=== PATIENT | female | born 1955 | race Caucasian/White ===

== ENCOUNTER 2018-02-12 09:41 | Outpatient (CLI) | payer OTHER ==
--- NOTE | 2018-02-12 11:08 | RAD ---
LUMBAR SPINE TWO VIEWS: History: Low back pain. FINDINGS/IMPRESSION: There are degenerative changes in the lumbar spine without evidence of fracture, subluxation, or bony destruction. There are post op changes at the SI joint. POS: [facility]
== END 2018-02-12 09:42 | disposition home or self-care (01) ==
LOC: TBSIIMAG 09:41
PROVIDERS: ATTEND Neurological Surgery
DX: M54.5 Low back pain (principal); M47.896 Other spondylosis, lumbar region; Z98.890 Other specified postprocedural states
CPT/HCPCS: 72100

== ENCOUNTER 2018-03-12 07:39 | Outpatient (CLI) | payer OTHER ==
--- NOTE | 2018-03-12 10:01 | MRI ---
MRI LUMBAR SPINE WITHOUT CONTRAST: HISTORY: M54.16, lumbar radiculopathy. COMPARISON: MRI lumbar spine from 2014. FINDINGS: The T2 hyperintense foci of both kidneys are slightly increased in size most suggestive of cysts. Th e aortic contour is non-aneurysmal. Right SI joint fusion hardware. Congenitally shortened pedicles. The levels are as follows: T12-L1: Mild disk desiccation. Low-grade disk bulge. No neural foraminal or spinal canal narrowing . L1-2: Mild circumferential disk bulge. Mild facet arthrosis. The spinal canal measures over a cent imeter. L2-3: Mild circumferential disk bulge. The spinal canal measures approximately 9 mm. No significan t neural foraminal narrowing. L3-4: Mild disk desiccation and circumferential disk bulge. Mild facet arthropathy. There is moder ate bilateral neural foraminal narrowing. The spinal canal measures approximately 8 mm. There appea rs to be abutment of the exiting right L3 nerve root. L4-5: Mild disk desiccation. Moderate facet hypertrophic changes. There is moderate left neural fo raminal narrowing. The spinal canal measures approximately 8 mm. L5-S1: Moderate to severe hypertrophic facet changes. Low-grade circumferential disk bulge. Mild b ilateral neural foraminal narrowing. IMPRESSION: Mild to moderate spondylosis as described above worst at L4-5. POS: [facility]
== END 2018-03-12 07:40 | disposition home or self-care (01) ==
LOC: TBSIIMAG 07:39
PROVIDERS: ATTEND Neurological Surgery
DX: M47.26 Other spondylosis with radiculopathy, lumbar region (principal)
CPT/HCPCS: 72148

== ENCOUNTER 2018-04-03 09:54 | Outpatient (CLI) | payer OTHER ==
[2018-04-03 11:59] LABS: Hemoglobin 14.7 g/dL (12.0-16.0); Mean Corpuscular HGB CONC 34.5 g/dL (32.0-36.0); Mean Corpuscular Volume 95.6 fl (81.0-99.0); Mean Platelet Volume 8.3 fL (7.4-10.4); Platelet Count 278 thou/uL (130-400); RBC Distribution Width 11.7 % (11.5-14.5); Red Blood Cell (RBC) Count 4.44 mill/uL (4.20-5.40); White Blood Cell (WBC) Count 8.4 thou/uL (4.8-10.8)
[2018-04-03 12:19] LABS: Anion Gap 12 mmol/L (10-20); BUN (Urea Nitrogen) 10 mg/dL (9.8-20.1); Calc. Creatinine Clearance 0 mL/min (70-130); Calcium 10.5 mg/dL (7.8-10.44); Carbon Dioxide 26 mmol/L (23-31); Chloride 103 mmol/L (98-107); Estimated GFR-MDRD 82; Glucose 185 mg/dL (80-115); Potassium 3.6 mmol/L (3.5-5.1); Sodium 137 mmol/L (136-145)
== END 2018-04-03 09:55 | disposition home or self-care (01) ==
LOC: LABBT 09:54
PROVIDERS: ATTEND Neurological Surgery
DX: Z01.818 Encounter for other preprocedural examination (principal); M54.5 Low back pain
CPT/HCPCS: 80048; 85027; 93005; 93010

== ENCOUNTER 2018-04-08 10:44 | Day surgery (SDC) | payer OTHER ==
[2018-04-03 10:05] VITALS: BMI 36.3
--- NOTE | 2018-04-07 10:42 | HP ---
HISTORY OF PRESENT ILLNESS: Ms. Paiz is a 62-year-old woman, known to us for distant evaluation of l umbar back pains and right lower extremity L3 pains with an MRI performed at that time revealing no s ignificant nerve compression; however, early Modic endplate changes at L3-4. She returns today for n ow bilateral L3 pain, but more or less constant and exacerbated by activity. She does now have a new MRI from [facility] that reveals further progression of Modic endplate changes at L3-4. She also struggle s with a significant amount of back pain. She did have a surgery in [address] Ceja, which lo oks like there was a right SI joint fusion, based off of x-rays she had performed in the clinic today . She has had several epidural steroid injections with Dr. Resendez, but never seems like they ma de a significant degree of difference, though her PT did help, but her pain has continued to return a fter completion of each therapy session. She has to move forward with surgery at this time. PAST MEDICAL HISTORY: Includes hypertension, type 2 diabetes, osteoarthritis, kidney stones, hyperli pidemia. CURRENT MEDICATIONS: Aspirin, PreserVision, metformin, losartan, atorvastatin, and Aleve. ALLERGIES: LYRICA. PHYSICAL EXAMINATION: On exam, patient is alert and oriented x3. Gait is significantly antalgic. P atrick's test bilaterally is negative. Lower extremity motor exam is normal bilaterally. ASSESSMENT: Lower back pain with lumbar radiculopathy. PLAN: Dr. Redmond met with the patient, reviewed imaging, and advocated for an L3-4 spinal fusion. He explained to the patient the risks, benefits, and alternatives to the procedure. The patient expres sed understanding and would like to move forward with surgery as discussed. I do believe the patient is mentally competent and capable of making medical decisions for herself and we will move forward w [facility] surgery as planned. Wood Pulido PA-C dictating for Dank Redmond M.D.
[2018-04-08] MEDS ORDERED: CEFAZOLIN/Water 2 GM/20 ML SYRINGE ONE ×2 (12:02→16:37)
[2018-04-08] MEDS ORDERED: Thrombin 5000 UNITS/5 ML VIAL ONE (12:24)
[2018-04-08] MEDS ORDERED: Bupivacaine HCl 0.5%/Epinephrine 1:200,000/PF 30 ml Vial ONE (12:24)
[2018-04-08] MEDS ORDERED: Fentanyl 250 MCG/5 ML VIAL ONE (12:48)
[2018-04-08] MEDS ORDERED: Midazolam HCl 2 mg/2 ml Vial ONE (12:48)
[2018-04-08] MEDS ORDERED: Lidocaine 1% PF 5 ML VIAL ONE (13:37)
[2018-04-08] MEDS ORDERED: Dexamethasone 20 MG/5 ML VIAL ONE (13:37)
[2018-04-08] MEDS ORDERED: PHENYLEPHRINE-NS 100 MCG/ML 10 ML SYRINGE ONE (13:37)
[2018-04-08] MEDS ORDERED: ePHEDrine/0.9% NaCl/PF SYRINGE 50 mg/10 ml ONE (13:37)
[2018-04-08] MEDS ORDERED: Ondansetron HCl/PF 4 MG/2 ML Vial ONE (13:37)
[2018-04-08] MEDS ORDERED: Glycopyrrolate 0.2 MG/ML 5 ML SYRINGE ONE (13:37)
[2018-04-08] MEDS ORDERED: PROPOFOL 200 MG/20 ML VIAL ONE (13:37)
[2018-04-08] MEDS ORDERED: Esmolol 100 MG/10 ML VIAL ONE (13:37)
[2018-04-08] MEDS ORDERED: Ketorolac Tromethamine 30 MG/ML VIAL ONE (15:25)
--- NOTE | 2018-04-09 12:41 | OP ---
DATE OF PROCEDURE: 04/08/2018 SURGEON: Dank Redmond M.D. CUSTOMS APPRAISER: None. INDICATION: Pain. DIAGNOSIS: Lumbar radiculopathy. PROCEDURE PERFORMED: L3-L4 lumbar decompression, bilateral medial facetectomies, foraminotomies. ANESTHESIA: General. TECHNIQUE: The patient was brought into the operating room and placed under general anesthesia. She was flipped from a supine to a prone position on the operating room table. A linear incision was pl anned over the L3-L4. After prepping and draping and after an appropriate operative pause, the incis ion was created. Soft tissues were swept away from midline. A self-retaining retractor was placed i n the wound for optimal exposure. After confirming the appropriate levels with C-arm fluoroscopy, Ad son rongeurs as well as a high-speed cutting drill bit as well as 2, 3 and 4 mm Kerrisons were used t o perform a laminectomy at L3-L4. After completing the decompression, the wound was irrigated. Hemo stasis was maintained throughout. The wound was then closed in anatomic layers and a pressure dressi ng was applied. There were no known procedural complications.
== END 2018-04-08 17:06 | disposition home or self-care (01) ==
LOC: SDC 10:44
PROVIDERS: ATTEND Neurological Surgery
PROC: 01NB0ZZ Release Lumbar Nerve, Open Approach (ICD-10-PCS; principal; 2018-04-08)
DX: M54.16 Radiculopathy, lumbar region (principal); I10 Essential (primary) hypertension; E11.9 Type 2 diabetes mellitus without complications; E78.5 Hyperlipidemia, unspecified; M19.90 Unspecified osteoarthritis, unspecified site; Z88.8 Allergy status to other drugs, medicaments and biological substances; Z88.5 Allergy status to narcotic agent; Z79.84 Long term (current) use of oral hypoglycemic drugs; Z79.899 Other long term (current) drug therapy; Z79.82 Long term (current) use of aspirin
CPT/HCPCS: 76001; 96374; J0670; J1100; J1885; J2001; J2250; J2405; J2704; J3010

== ENCOUNTER 2018-05-20 10:21 | Outpatient (CLI) | payer OTHER ==
--- NOTE | 2018-05-21 16:39 | MMO ---
BILATERAL SCREENING MAMMOGRAMS: 05/20/18 HISTORY: 63-year-old female for screening mammography. COMPARISON: 05/17/17, 05/15/16, 05/14/15. FINDINGS: Bilateral MLO and CC views of the breasts shows predominantly fatty replaced breast parenchyma. Benig n appearing calcifications are seen in both breasts. There is no evidence of suspicious mass, suspici ous cluster of microcalcifications or area of architectural distortion. Interpretation of this mammogram was performed with the assistance of computer aided detection. IMPRESSION: BI-RADS 2: Benign Finding(s) Routine annual screening mammography (for women over age 40). POS: [facility]
== END 2018-05-20 10:22 | disposition home or self-care (01) ==
LOC: SCSMAMMO 10:21
PROVIDERS: ATTEND Family Medicine
DX: Z12.31 Encounter for screening mammogram for malignant neoplasm of breast (principal)
CPT/HCPCS: 77067

== ENCOUNTER 2019-01-06 08:45 | Outpatient (CLI) | payer OTHER ==
--- NOTE | 2019-01-06 11:17 | BD ---
DEXA BONE SCAN: HISTORY: Age-related osteoporosis. COMPARISON: Previous exam from [facility] on 03/08/2015. TECHNIQUE: A DEXA bone scan is performed using a hologic bone mineral density unit. FINDINGS: DEXA evaluation of the lumbar spine was unable to be performed due to previous lumbar surgery. Bilat [facility] hip bone mineral density evaluation was performed. RIGHT HIP BMD (g/cm2) T-SCORE Z-SCORE FEMORAL NECK 0.69 -1.4 0.0 COMPOSITE 0.86 -0.7 0.5 The patient has FRAX score on the right, for a major osteoporotic fracture, is 7.7%, and hip fracture risk is 0.7%. Findings similar to previous bone scan, when the patient had a T-score of -0.7 and a Z-score of 0.3. LEFT HIP BMD (g/cm2) T-SCORE Z-SCORE FEMORAL NECK 0.65 -1.8 -0.4 COMPOSITE 0.87 -0.6 0.5 The patient has the following FRAX score: Major osteoporotic fracture risk is 8.6% and hip fracture risk is 0.9%. The patient's left hip bone mineral density has slightly improved since the previous e xam. Previously, the T-score was -1.3 and the Z-score was -0.4. IMPRESSION: Mild osteopenia with no significant evidence of interval change since the previous comparison examina tion. POS: [facility]
== END 2019-01-06 08:46 | disposition home or self-care (01) ==
LOC: BICMAMMO 08:45
PROVIDERS: ATTEND Family Medicine
DX: E21.0 Primary hyperparathyroidism (principal); M85.851 Other specified disorders of bone density and structure, right thigh; M85.852 Other specified disorders of bone density and structure, left thigh
CPT/HCPCS: 77080

== ENCOUNTER 2019-06-10 12:55 | Outpatient (CLI) | payer OTHER ==
--- NOTE | 2019-06-10 13:34 | MMO ---
Bilateral MAMMO Bilat Screen [facility]. CLINICAL HISTORY: Patient is 64 years old and is seen for screening. The patient has the following family history of breast cancer: sister, at age 50. The patient has no personal history of cancer. VIEWS: The views performed were: bilateral craniocaudal with tomosynthesis and bilateral mediolateral oblique with tomosynthesis. FILMS COMPARED: The present examination has been compared to prior imaging studies performed at [facility] on 05/12/2014, 05/14/2015, 05/15/2016 and 05/17/2017. MAMMOGRAM FINDINGS: The breasts are almost entirely fat. There are stable benign appearing calcifications seen in both breasts. There are no suspicious masses, suspicious calcifications, or new areas of architectural distortion. IMPRESSION: THERE IS NO MAMMOGRAPHIC EVIDENCE OF MALIGNANCY. A ROUTINE FOLLOW-UP MAMMOGRAM IN 1 YEAR IS RECOMMENDED. THE RESULTS OF THIS EXAM WERE SENT TO THE PATIENT. ACR BI-RADS Category 2 - Benign finding MAMMOGRAPHY NOTE: 1. A negative mammogram report should not delay a biopsy if a dominant of clinically suspicious mass is present. 2. Approximately 10% to 15% of breast cancers are not detected by mammography. 3. Adenosis and dense breasts may obscure an underlying neoplasm. Reported by: AB HARRINGTON MD Electonically Signed: [id number]
== END 2019-06-10 12:56 | disposition home or self-care (01) ==
LOC: BICMAMMO 12:55
PROVIDERS: ATTEND Physician Assistant
DX: Z12.31 Encounter for screening mammogram for malignant neoplasm of breast (principal); Z80.3 Family history of malignant neoplasm of breast
CPT/HCPCS: 77063; 77067

== ENCOUNTER 2019-12-09 07:22 | Outpatient (CLI) | payer OTHER ==
--- NOTE | 2019-12-09 14:03 | NM ---
RADIONUCLIDE PARATHYROID SCAN WITH PLANAR AND SPECT-CT IMAGES: HISTORY: Hyperparathyroidism, primary RADIOPHARMACEUTICAL:26.2mCi technetium 99m-sestamibi injected intravenously FINDINGS: There is physiologic uptake in the salivary glands and thyroid gland. There is focally increased uptake in the region of the inferior right parathyroid gland. No abnormal areas of tracer localization are seen in the chest. 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
== END 2019-12-09 07:23 | disposition home or self-care (01) ==
LOC: NM 07:22
PROVIDERS: ATTEND Physician Assistant
DX: E21.0 Primary hyperparathyroidism (principal)
CPT/HCPCS: 78072; A9500

== ENCOUNTER 2021-06-20 09:24 | Outpatient (CLI) | payer MEDICARE | END 2021-06-20 09:25 | disposition home or self-care (01) | LOC: BICMAMMO 09:24 | PROVIDERS: ATTEND Physician Assistant | DX: Z12.31 Encounter for screening mammogram for malignant neoplasm of breast (principal); Z80.3 Family history of malignant neoplasm of breast | CPT/HCPCS: 77063; 77067 ==

== ENCOUNTER 2021-11-18 13:40 | Outpatient (CLI) | payer MEDICARE | END 2021-11-18 13:41 | disposition home or self-care (01) | LOC: BICRAD 13:40 | PROVIDERS: ATTEND Physician Assistant | DX: M25.512 Pain in left shoulder (principal) ==

== ENCOUNTER 2022-06-22 14:33 | Outpatient (CLI) | payer MEDICARE, OTHER | END 2022-06-22 14:34 | disposition home or self-care (01) | LOC: BICMAMMO 14:33 | PROVIDERS: ATTEND Nurse Practitioner Family | DX: Z12.31 Encounter for screening mammogram for malignant neoplasm of breast (principal); Z80.3 Family history of malignant neoplasm of breast | CPT/HCPCS: 77063; 77067 ==

== ENCOUNTER 2023-07-26 09:37 | Outpatient (CLI) | payer MEDICARE | END 2023-07-26 09:38 | disposition home or self-care (01) | LOC: BICMAMMO 09:37 | PROVIDERS: ATTEND Nurse Practitioner Family | DX: Z12.31 Encounter for screening mammogram for malignant neoplasm of breast (principal); Z80.3 Family history of malignant neoplasm of breast | CPT/HCPCS: 77063; 77067 ==

== ENCOUNTER 2023-08-21 10:06 | Outpatient (CLI) | payer MEDICARE | END 2023-08-21 10:07 | disposition home or self-care (01) | LOC: BICRAD 10:06 | PROVIDERS: ATTEND Nurse Practitioner Family | DX: M19.011 Primary osteoarthritis, right shoulder (principal) ==

== ENCOUNTER 2023-08-22 08:47 | Outpatient (CLI) | payer MEDICARE | END 2023-08-22 08:48 | disposition home or self-care (01) | LOC: BICMAMMO 08:47 | PROVIDERS: ATTEND Nurse Practitioner Family | DX: Z13.820 Encounter for screening for osteoporosis (principal); Z78.0 Asymptomatic menopausal state; M85.89 Other specified disorders of bone density and structure, multiple sites | CPT/HCPCS: 77080 ==

== ENCOUNTER 2023-09-04 09:59 | Outpatient (CLI) | payer MEDICARE | END 2023-09-04 10:00 | disposition home or self-care (01) | LOC: BICMRI 09:59 | PROVIDERS: ATTEND Nurse Practitioner Family | DX: M25.511 Pain in right shoulder (principal); M75.101 Unspecified rotator cuff tear or rupture of right shoulder, not specified as traumatic; M25.411 Effusion, right shoulder; M19.011 Primary osteoarthritis, right shoulder ==

== ENCOUNTER 2024-07-31 09:16 | Outpatient (CLI) | payer MEDICARE | END 2024-07-31 09:17 | disposition home or self-care (01) | LOC: BICMAMMO 09:16 | PROVIDERS: ATTEND Nurse Practitioner Family | DX: Z12.31 Encounter for screening mammogram for malignant neoplasm of breast (principal); Z80.3 Family history of malignant neoplasm of breast | CPT/HCPCS: 77067 ==

== ENCOUNTER 2024-08-28 10:07 | Inpatient (IN) | payer MEDICARE ==
[2024-08-28] MEDS ORDERED: Ondansetron ODT 4 MG TAB ONE (10:26)
[2024-08-28 11:20] LABS: #Basophils 0.09 10x3/uL (0.0-0.2); #Eosinophils Less than 0.03 10x3/uL (0.0-0.7); %Basophils 0.5 % (0.0-1.0); %Lymphocytes 5.7 % (21.0-51.0); %Monocytes 4.1 % (0.0-10.0); Hematocrit 38.2 % (36.0-47.0); Hemoglobin 12.6 g/dL (12.0-16.0); Mean Corpuscular Hemoglobin 30.7 pg (27.0-31.0); Mean Corpuscular Volume 93.2 fL (78.0-98.0); Mean Platelet Volume 9.5 fL (7.4-10.4); Platelet Count 486 10x3/uL (130-400); RBC Distribution Width 14.9 % (11.5-14.5)
[2024-08-28 11:36] LABS: ALT (SGPT) 9 U/L (8-55); AST (SGOT) 9 U/L (5-34); Albumin 3.5 g/dL (3.4-4.8); Alkaline Phosphatase 53 U/L (40-110); Anion Gap 34 mmol/L (10-20); BUN (Urea Nitrogen) 46 mg/dL (9.8-20.1); Bilirubin, Total 0.5 mg/dL (0.2-1.2); Calc. Creatinine Clearance 0 mL/min (70-130); Calcium 10.5 mg/dL (7.8-10.44); Carbon Dioxide 11 mmol/L (23-31); Chloride 93 mmol/L (98-107); Estimated GFR 6; Globulin 3.8 g/dL (2.4-3.5); Glucose 55 mg/dL (80-115); Lipase 147 U/L (8-78); Magnesium 1.5 mg/dL (1.6-2.6); Potassium 3.3 mmol/L (3.5-5.1); Protein, Total 7.3 g/dL (5.8-8.1); Sodium 135 mmol/L (136-145)
[2024-08-28 11:55] LABS: Bacteria/HPF 4+ HPF (None Seen); Bilirubin Negative (Negative); Blood, Urine Trace (Negative); CAUTI Indications for Culture Pelvic or flank pain; Clarity Extra Turbid (Clear); Glucose, Urine (Dipstick) Normal (Negative); Ketone, Urine 10 mg/dL (Negative); Leukocyte 500 Leu/uL (Negative); Nitrite Negative (Negative); Protein, Urine (Dipstick) 50 mg/dL (Neg-Trace); RBC/HPF 0-3 HPF (0-3); Specific Gravity, Urine 1.006 (1.002-1.036); Squamous Epithelial 21-50 HPF (0-3); Urobilinogen Normal mg/dL (Less than 2); WBC/HPF 21-50 HPF (0-3)
[2024-08-28 11:58] LABS: Urine Culture Reflex Yes Yes
[2024-08-28] MEDS ORDERED: Sodium Chloride 0.9% 100 ML ONE (13:22)
[2024-08-28] MEDS ORDERED: Magnesium 2 GM/50 ML BAG (IN WATER) ONE (13:22)
[2024-08-28] MEDS ORDERED: cefTRIAXone (ROCEPHIN) 2 GM VIAL ONE (13:22)
[2024-08-28] MEDS ORDERED: Loperamide HCl 2 MG CAP PO PRN ×2 (14:48)
[2024-08-28] MEDS ORDERED: Ondansetron ODT 4 MG TAB PO PRN (14:48)
[2024-08-28] MEDS ORDERED: Glucagon 1 MG/ML KIT IM PRN (14:51)
[2024-08-28] MEDS ORDERED: Dextrose 5% in Water 1,000 ML IV PRN (14:51)
[2024-08-28 15:00] VITALS: BMI 71.1
[2024-08-28] MEDS: Sodium Chloride 0.9% 1,000 ML IV SCH (15:32)
[2024-08-28] MEDS: Heparin 5,000 UNITS/ML VIAL SC SCH (15:32)
[2024-08-28] MEDS: Sodium Bicarb 50 MEQ/50 ML Abboject 8.4% SYRINGE IVP SCH (16:13)
[2024-08-28 17:16] LABS: Lactic Acid 9.07 mmol/L (0.5-2.2)
[2024-08-28] MEDS: FLU (Fluad Triv) TS24-25 (65UP)/MF59C/PF 45 MCG/0.5 ML Syringe IM ONE (18:04)
[2024-08-28] MEDS: Acetaminophen 325 MG TAB PO PRN (19:20)
[2024-08-28] MEDS: Famotidine/PF 20 mg/2ml Vial SLOW IVP SCH (21:02)
[2024-08-29 01:41] LABS: #Basophils 0.06 10x3/uL (0.0-0.2); #Eosinophils Less than 0.03 10x3/uL (0.0-0.7); %Basophils 0.5 % (0.0-1.0); %Eosinophils 0.2 % (0.0-10.0); %Lymphocytes 15.2 % (21.0-51.0); %Monocytes 9.3 % (0.0-10.0); %Neutrophils 74.3 % (42.0-75.0); Hematocrit 30.4 % (36.0-47.0); Hemoglobin 10.3 g/dL (12.0-16.0); Mean Corpuscular HGB CONC 33.9 g/dL (32.0-36.0); Mean Corpuscular Hemoglobin 31.4 pg (27.0-31.0); Mean Corpuscular Volume 92.7 fL (78.0-98.0); Mean Platelet Volume 9.3 fL (7.4-10.4); Platelet Count 361 10x3/uL (130-400); Red Blood Cell (RBC) Count 3.28 mill/uL (4.20-5.40)
[2024-08-29 01:45] LABS: Anion Gap 24 mmol/L (10-20); BUN (Urea Nitrogen) 43 mg/dL (9.8-20.1); Calc. Creatinine Clearance 21 mL/min (70-130); Calcium 8.7 mg/dL (7.8-10.44); Carbon Dioxide 13 mmol/L (23-31); Chloride 99 mmol/L (98-107); Estimated GFR 6; Glucose 33 mg/dL (80-115); Sodium 133 mmol/L (136-145)
[2024-08-29] MEDS: Dextrose 50% Abboject 50 ML SYRINGE SLOW IVP PRN (01:53)
[2024-08-29 02:09] LABS: Magnesium 1.7 mg/dL (1.6-2.6)
[2024-08-29] MEDS: Magnesium 2 GM/50 ML(in water) 2 GM in Premix 1 BAG IVPB SCH (03:35)
[2024-08-29] MEDS: Sodium Bicarbonate 150 MEQ in Dextrose 5% in Water 1,000 ML IV SCH (03:36)
[2024-08-29] MEDS: Potassium Chloride 20 MEQ in Premix 1 BAG IVPB SCH ×2 (03:36→05:46)
[2024-08-29 03:55] LABS: Sodium 131 mmol/L (136-145)
[2024-08-29 03:56] LABS: BUN (Urea Nitrogen) 43 mg/dL (9.8-20.1); Calc. Creatinine Clearance 23 mL/min (70-130); Carbon Dioxide 10 mmol/L (23-31); Chloride 98 mmol/L (98-107); Estimated GFR 6
[2024-08-29 03:57] LABS: Calcium 8.9 mg/dL (7.6-10.4); Glucose 26 mg/dL (80-115); Lipase 396 U/L (8-78)
[2024-08-29 03:58] LABS: Anion Gap 26 mmol/L (10-20)
[2024-08-29] MEDS: Cefepime 1 GM in Sodium Chloride 0.9% 100 ML IVPB SCH (10:14)
[2024-08-29 10:40] LABS: #Basophils 0.05 10x3/uL (0.0-0.2); %Basophils 0.5 % (0.0-1.0); %Eosinophils 0.3 % (0.0-10.0); %Lymphocytes 9.1 % (21.0-51.0); %Monocytes 8.9 % (0.0-10.0); %Neutrophils 80.7 % (42.0-75.0); Hematocrit 28.2 % (36.0-47.0); Hemoglobin 9.8 g/dL (12.0-16.0); Mean Corpuscular HGB CONC 34.8 g/dL (32.0-36.0); Mean Corpuscular Hemoglobin 30.7 pg (27.0-31.0); Mean Corpuscular Volume 88.4 fL (78.0-98.0); Mean Platelet Volume 9.7 fL (7.4-10.4); Platelet Count 356 10x3/uL (130-400); RBC Distribution Width 14.9 % (11.5-14.5); Red Blood Cell (RBC) Count 3.19 mill/uL (4.20-5.40)
[2024-08-29] MEDS: Insulin Lispro 100 UNIT/ML 10 ML VIAL SC PRN (10:57)
[2024-08-29 11:04] LABS: ALT (SGPT) 7 U/L (8-55); AST (SGOT) 10 U/L (5-34); Albumin 2.7 g/dL (3.4-4.8); Alkaline Phosphatase 38 U/L (40-110); Anion Gap 19 mmol/L (10-20); BUN (Urea Nitrogen) 41 mg/dL (9.8-20.1); Bilirubin, Total 0.4 mg/dL (0.2-1.2); Calc. Creatinine Clearance 11 mL/min (70-130); Calcium 8.7 mg/dL (7.8-10.44); Carbon Dioxide 20 mmol/L (23-31); Chloride 93 mmol/L (98-107); Estimated GFR 6; Globulin 2.7 g/dL (2.4-3.5); Glucose 204 mg/dL (80-115); Potassium 3.2 mmol/L (3.5-5.1); Protein, Total 5.4 g/dL (5.8-8.1); Sodium 129 mmol/L (136-145)
[2024-08-29] MEDS: Ondansetron PF 4 MG/2 ML Vial IVP PRN (12:10)
[2024-08-29] MEDS: Albumin 25% 25 GM (100 mL) BOT IVPB SCH (12:11)
[2024-08-29 12:47] LABS: ANA Symphony (Qualitative) Negative (Negative); ANA Symphony (Quantitative) 0.1 Ratio (< 0.7 Negative)
[2024-08-29] MEDS ORDERED: cefTRIAXone\\ROCEPHIN 1 GM in Sodium Chloride 0.9% 100 ML IVPB SCH (13:00)
[2024-08-29 13:39] LABS: Lactic Acid 3.77 mmol/L (0.5-2.2)
[2024-08-29 14:18] LABS: Anion Gap 20 mmol/L (10-20); BUN (Urea Nitrogen) 42 mg/dL (9.8-20.1); Calc. Creatinine Clearance 10 mL/min (70-130); Calcium 8.9 mg/dL (7.8-10.44); Carbon Dioxide 22 mmol/L (23-31); Chloride 93 mmol/L (98-107); Estimated GFR 6; Glucose 180 mg/dL (80-115); Sodium 132 mmol/L (136-145)
[2024-08-29 15:38] VITALS: BMI 34.3
[2024-08-29] MEDS: Sodium Chloride 0.9% 1,000 ML IV SCH (16:48)
[2024-08-29 18:58] LABS: Phosphorus 3.4 mg/dL (2.3-4.7)
[2024-08-29 21:34] LABS: Anion Gap 20 mmol/L (10-20); BUN (Urea Nitrogen) 40 mg/dL (9.8-20.1); Calc. Creatinine Clearance 12 mL/min (70-130); Calcium 9.2 mg/dL (7.8-10.44); Carbon Dioxide 21 mmol/L (23-31); Chloride 92 mmol/L (98-107); Estimated GFR 7; Glucose 148 mg/dL (80-115); Potassium 2.9 mmol/L (3.5-5.1); Sodium 130 mmol/L (136-145)
[2024-08-29 23:52] LABS: Protein, Urine Random Quant Less than 10 mg/dL (1-14)
[2024-08-30] MEDS: Methocarbamol 500 MG TAB PO SCH (01:03)
[2024-08-30 05:16] LABS: #Basophils 0.03 10x3/uL (0.0-0.2); %Basophils 0.3 % (0.0-1.0); %Eosinophils 0.3 % (0.0-10.0); %Monocytes 6.9 % (0.0-10.0); %Neutrophils 86.1 % (42.0-75.0); Hematocrit 25.4 % (36.0-47.0); Mean Corpuscular HGB CONC 35.4 g/dL (32.0-36.0); Mean Corpuscular Hemoglobin 31.1 pg (27.0-31.0); Mean Corpuscular Volume 87.9 fL (78.0-98.0); Platelet Count 239 10x3/uL (130-400); Red Blood Cell (RBC) Count 2.89 mill/uL (4.20-5.40)
[2024-08-30 05:32] LABS: Anion Gap 19 mmol/L (10-20); BUN (Urea Nitrogen) 39 mg/dL (9.8-20.1); Calc. Creatinine Clearance 12 mL/min (70-130); Calcium 9.3 mg/dL (7.8-10.44); Carbon Dioxide 20 mmol/L (23-31); Chloride 94 mmol/L (98-107); Estimated GFR 7; Glucose 166 mg/dL (80-115); Magnesium 1.9 mg/dL (1.6-2.6); Potassium 2.8 mmol/L (3.5-5.1); Sodium 130 mmol/L (136-145)
[2024-08-30 05:46] LABS: Complement-C3 88 mg/dL (83-193); Complement-C4 19 mg/dL (15-57)
[2024-08-30] MEDS: Magnesium 2 GM/50 ML(in water) 2 GM in Premix 1 BAG IVPB SCH (06:54)
[2024-08-30] MEDS: Potassium Chloride 20 MEQ in Premix 1 BAG IVPB SCH (06:54)
[2024-08-30] MEDS: Cefepime 2 GM in Sodium Chloride 0.9% 100 ML IVPB SCH (07:53)
[2024-08-31 09:06] LABS: #Basophils 0.06 10x3/uL (0.0-0.2); %Basophils 0.5 % (0.0-1.0); %Lymphocytes 9.3 % (21.0-51.0); %Monocytes 6.6 % (0.0-10.0); %Neutrophils 81.2 % (42.0-75.0); Hematocrit 28.9 % (36.0-47.0); Hemoglobin 9.6 g/dL (12.0-16.0); Mean Corpuscular HGB CONC 33.2 g/dL (32.0-36.0); Mean Corpuscular Volume 93.2 fL (78.0-98.0); Mean Platelet Volume 9.8 fL (7.4-10.4); Platelet Count 303 10x3/uL (130-400); RBC Distribution Width 15.9 % (11.5-14.5)
[2024-08-31 09:22] LABS: Anion Gap 18 mmol/L (10-20); BUN (Urea Nitrogen) 34 mg/dL (9.8-20.1); Calc. Creatinine Clearance 14 mL/min (70-130); Calcium 10.1 mg/dL (7.8-10.44); Carbon Dioxide 19 mmol/L (23-31); Chloride 102 mmol/L (98-107); Estimated GFR 8; Glucose 128 mg/dL (80-115); Magnesium 2.2 mg/dL (1.6-2.6); Potassium 2.7 mmol/L (3.5-5.1); Sodium 136 mmol/L (136-145)
[2024-08-31] MEDS: Potassium Chloride 20 MEQ TAB PO SCH (12:54)
[2024-09-01 04:21] LABS: #Basophils 0.06 10x3/uL (0.0-0.2); %Basophils 0.7 % (0.0-1.0); %Eosinophils 3.6 % (0.0-10.0); %Monocytes 6.7 % (0.0-10.0); %Neutrophils 77.6 % (42.0-75.0); Hemoglobin 8.4 g/dL (12.0-16.0); Mean Corpuscular HGB CONC 33.6 g/dL (32.0-36.0); Mean Corpuscular Hemoglobin 30.9 pg (27.0-31.0); Mean Corpuscular Volume 91.9 fL (78.0-98.0); Mean Platelet Volume 10.2 fL (7.4-10.4); Platelet Count 291 10x3/uL (130-400); RBC Distribution Width 15.5 % (11.5-14.5); Red Blood Cell (RBC) Count 2.72 mill/uL (4.20-5.40)
[2024-09-01 04:41] LABS: Anion Gap 14 mmol/L (10-20); BUN (Urea Nitrogen) 31 mg/dL (9.8-20.1); Calc. Creatinine Clearance 18 mL/min (70-130); Calcium 9.6 mg/dL (7.8-10.44); Carbon Dioxide 19 mmol/L (23-31); Chloride 106 mmol/L (98-107); Estimated GFR 11; Glucose 131 mg/dL (80-115); Potassium 3.3 mmol/L (3.5-5.1); Sodium 136 mmol/L (136-145)
[2024-09-01] MEDS: Magnesium Oxide 400 MG TAB PO SCH (12:46)
[2024-09-01] MEDS: Potassium Chloride 20 MEQ TAB PO SCH (12:46)
[2024-09-02 05:58] LABS: #Basophils 0.04 10x3/uL (0.0-0.2); %Basophils 0.5 % (0.0-1.0); %Eosinophils 4.5 % (0.0-10.0); %Lymphocytes 11.4 % (21.0-51.0); %Monocytes 7.5 % (0.0-10.0); %Neutrophils 75.5 % (42.0-75.0); Hematocrit 25.6 % (36.0-47.0); Hemoglobin 8.9 g/dL (12.0-16.0); Mean Corpuscular HGB CONC 34.8 g/dL (32.0-36.0); Mean Corpuscular Hemoglobin 31.7 pg (27.0-31.0); Mean Corpuscular Volume 91.1 fL (78.0-98.0); Mean Platelet Volume 10.1 fL (7.4-10.4); Platelet Count 315 10x3/uL (130-400); RBC Distribution Width 15.9 % (11.5-14.5); Red Blood Cell (RBC) Count 2.81 mill/uL (4.20-5.40)
[2024-09-02 06:10] LABS: Anion Gap 13 mmol/L (10-20); BUN (Urea Nitrogen) 24 mg/dL (9.8-20.1); Calc. Creatinine Clearance 27 mL/min (70-130); Calcium 9.7 mg/dL (7.8-10.44); Carbon Dioxide 19 mmol/L (23-31); Chloride 108 mmol/L (98-107); Estimated GFR 17; Glucose 143 mg/dL (80-115); Potassium 3.9 mmol/L (3.5-5.1); Sodium 136 mmol/L (136-145)
[2024-09-02] MEDS: Magnesium Oxide 400 MG TAB PO SCH (08:04)
[2024-09-02 08:31] VITALS: TEMP 98.1
[2024-09-02 16:53] VITALS: BP 150/84
[2024-09-03 12:36] LABS: Smith D IgG Antibody Less than 0.7 EliAU/mL (<7 Negative)
== END 2024-09-02 17:37 | disposition home or self-care (01) | DRG 872 ==
LOC: ERS 10:07 → T4-B 14:43 → IMCU/EMU 17:33 → T4-A 09-01 16:30
PROVIDERS: ADMIT Internal Medicine; ATTEND Student in an Organized Health Care Education/Training Program
DX: A41.59 Other Gram-negative sepsis (principal); N17.9 Acute kidney failure, unspecified; E87.20 Acidosis, unspecified; N39.0 Urinary tract infection, site not specified; E87.1 Hypo-osmolality and hyponatremia; N18.4 Chronic kidney disease, stage 4 (severe); R65.20 Severe sepsis without septic shock; E87.6 Hypokalemia; M32.9 Systemic lupus erythematosus, unspecified; E86.0 Dehydration; E83.42 Hypomagnesemia; I12.9 Hypertensive chronic kidney disease with stage 1 through stage 4 chronic kidney disease, or unspecified chronic kidney disease; E83.52 Hypercalcemia; E11.22 Type 2 diabetes mellitus with diabetic chronic kidney disease; N28.1 Cyst of kidney, acquired; Z88.8 Allergy status to other drugs, medicaments and biological substances; Z88.5 Allergy status to narcotic agent; Z79.84 Long term (current) use of oral hypoglycemic drugs; Z79.899 Other long term (current) drug therapy; Z90.711 Acquired absence of uterus with remaining cervical stump
CPT/HCPCS: 36415; 36416; 76770; 80048; 80053; 81001; 82533; 82570; 83516; 83605; 83690; 83735; 84100; 84145; 84156; 85025; 86037; 86038; 86160; 86225; 86235; 87040; 87086; 96361; 96365; 96368; J0692; J0696; J1644; J1815; J2405; J3475; J3480; J3490; J7030; J7070; J7999; P9047; Q0162

== ENCOUNTER 2024-12-01 08:24 | Outpatient (CLI) | payer OTHER | END 2024-12-01 08:25 | disposition home or self-care (01) | LOC: NM 08:24 | PROVIDERS: ATTEND Internal Medicine Nephrology | DX: E21.0 Primary hyperparathyroidism (principal); E04.1 Nontoxic single thyroid nodule; R94.8 Abnormal results of function studies of other organs and systems | CPT/HCPCS: 78072; A9500 ==

== ENCOUNTER 2025-08-03 10:16 | Outpatient (CLI) | payer OTHER | END 2025-08-03 10:17 | disposition home or self-care (01) | LOC: BICMAMMO 10:16 | PROVIDERS: ATTEND Nurse Practitioner Family | DX: Z12.31 Encounter for screening mammogram for malignant neoplasm of breast (principal); Z80.3 Family history of malignant neoplasm of breast | CPT/HCPCS: 77063; 77067 ==